=== PATIENT | female | born 2005 | race African-American/Black ===

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

== ENCOUNTER 2025-10-12 11:34 | Emergency (ER) | payer OTHER ==
[~2025-10-12] VITALS: Ht 177.8 cm; Wt 86.0 kg
[2025-10-12 13:08] VITALS: TEMP 36.7; O2SAT 98
[2025-10-12] MEDS ORDERED: IBUP-2028 MT (14:55)
[2025-10-12] MEDS ORDERED: LIDO700A30 TP (14:55)
[2025-10-12] MEDS: KETOROLAC 15MG/ML VIAL IM ONE (15:14)
[2025-10-12] MEDS: LIDOCAINE 5% PATCH TOP SCH (15:14)
[2025-10-12] MEDS: CYCLOBENZAPRINE 10MG TABLET PO ONE (15:14)
[2025-10-12 15:56] VITALS: BP 110/74; PULSE 89; RESP 15; O2SAT 99
== END 2025-10-12 15:59 | disposition home or self-care (01) ==
LOC: ER 13:06
DX: S16.1XXA Strain of muscle, fascia and tendon at neck level, initial encounter (principal); V49.9XXA Car occupant (driver) (passenger) injured in unspecified traffic accident, initial encounter; Y93.89 Activity, other specified; Y92.89 Other specified places as the place of occurrence of the external cause; Y99.8 Other external cause status
CPT/HCPCS: 99284; 71045; 81025; 73560; 96372; J1885